=== PATIENT | male | born 1965 | race Caucasian/White ===

== ENCOUNTER 2017-06-22 07:06 | Day surgery (SDC) | payer BC ==
[2017-06-22] MEDS: NS 1,000 ML IV (07:55)
[2017-06-22] MEDS ORDERED: PROPOFOL 500 MG/50 ML VIAL As Ordered (08:48)
[2017-06-22] MEDS ORDERED: LIDOCAINE 2% INJ 100 MG/5 ML SDV (FOR ANES.) As Ordered (08:48)
== END 2017-06-22 09:54 | disposition home or self-care (01) ==
LOC: M OPP 07:06
DX: Z12.11 Encounter for screening for malignant neoplasm of colon (principal); D12.5 Benign neoplasm of sigmoid colon; K62.1 Rectal polyp; R12 Heartburn; K22.8 Other specified diseases of esophagus; K44.9 Diaphragmatic hernia without obstruction or gangrene; I10 Essential (primary) hypertension; E78.5 Hyperlipidemia, unspecified; K21.9 Gastro-esophageal reflux disease without esophagitis; J45.909 Unspecified asthma, uncomplicated; K25.9 Gastric ulcer, unspecified as acute or chronic, without hemorrhage or perforation; Z88.0 Allergy status to penicillin; Z88.5 Allergy status to narcotic agent; Z79.899 Other long term (current) drug therapy; Z80.3 Family history of malignant neoplasm of breast
CPT/HCPCS: 45385

== ENCOUNTER → 2021-04-08 | Outpatient (REF) | payer BC ==
[~2021-04-08] MED LIST: EPIP0.3I2 IJ; LISI10TA22 PO; PREV1CAP PO; PROAAER10 INH; SING10TA32 PO; TRIC145T22 PO; XYZA5TAB2 PO; ZETI10TA16 PO
== END ==
LOC: M LAB REF 16:15
PROVIDERS: ATTEND Ophthalmology
DX: D23.122 Other benign neoplasm of skin of left lower eyelid, including canthus (principal)

== ENCOUNTER 2023-04-06 07:21 | Day surgery (SDC) | payer BC ==
[~2023-04-06] VITALS: Ht 182.9 cm; Wt 112.6 kg
[~2023-04-06 07:21] MED LIST changes: -EPIP0.3I2 IJ; +EPIP0.3I2 IM; +EZET10TA58 PO; +MONT-5 PO; +NS 1,000 ML IV ONE; +PROA1AER2 INH; -SING10TA32 PO; -ZETI10TA16 PO
[2023-04-06 07:36] VITALS: TEMP 97.3
[2023-04-06] MEDS ORDERED: propofoL 200 MG/20 ML VIAL As Ordered ONE (07:53)
[2023-04-06] MEDS ORDERED: LIDOCAINE 2% MDV 20ML VIAL As Ordered ONE (07:53)
[2023-04-06] MEDS ORDERED: fentaNYL 100 MCG/2 ML INJECTION As Ordered ONE (07:54)
[2023-04-06 09:48] VITALS: BP 114/61; O2SAT 97
== END 2023-04-06 09:47 | disposition home or self-care (01) ==
LOC: M OPP 07:21
PROVIDERS: ATTEND Internal Medicine Gastroenterology
DX: Z12.11 Encounter for screening for malignant neoplasm of colon (principal); K21.00 Gastro-esophageal reflux disease with esophagitis, without bleeding; Z86.010 Personal history of colon polyps; K64.0 First degree hemorrhoids; Z87.19 Personal history of other diseases of the digestive system; Z90.49 Acquired absence of other specified parts of digestive tract; J45.909 Unspecified asthma, uncomplicated; I10 Essential (primary) hypertension; Z79.899 Other long term (current) drug therapy; E78.00 Pure hypercholesterolemia, unspecified; Z88.0 Allergy status to penicillin; Z88.8 Allergy status to other drugs, medicaments and biological substances
CPT/HCPCS: 43239; 45378; 88305; J3010